=== PATIENT | female | born 1975 | race Two or more races ===

== ENCOUNTER → 2019-11-24 | Outpatient (CLI) | payer OTHER ==
--- NOTE | 2019-11-24 10:54 | KCIC ---
EXAM: MRI RIGHT HAND DATE: 11/24/2019 8:45 AM CLINICAL HISTORY: PAIN IN 3RD AND 4TH DIGITS FOR ONE YR/DECR STRENGTH COMPARISON: None. TECHNIQUE: Multiplanar, multisequence MR imaging of the right hand was performed without IV contrast. FINDINGS: No confluent T1 marrow replacing process. Apparent edema within the distal phalanx of the thumb may be artifactual from field in homogeneity artifact or be related to contusion. Otherwise no discrete marrow edema. No acute fracture. Visualized flexor and extensor tendons are grossly intact without tenosynovitis. No abnormal bowing. On this limited evaluation of the annular pulleys of the rays, grossly intact. Thumb MCP joint degenerative change with small osteophytes. Degenerative changes at scattered IP joints are also seen with small osteophytes. Degenerative changes at the middle finger MCP joint with cystic change/ganglion. Grossly normal muscle signal and bulk without fatty atrophy. IMPRESSION: 1. Visualized flexor and extensor tendons are intact without tenosynovitis. 2. Mild multifocal degenerative changes with small osteophytes, most prominent at the thumb MCP joint, scattered IP joints and middle finger MCP joint. 3. Contusion versus artifact distal phalanx thumb, can be correlated with patient's symptoms. Electronically signed by: Lenin Schultz MD (11/24/2019 10:51 AM) [facility]
== END ==
LOC: KCIC MRI 08:26
PROVIDERS: ATTEND Physician Assistant
DX: M25.741 Osteophyte, right hand (principal); M18.9 Osteoarthritis of first carpometacarpal joint, unspecified
CPT/HCPCS: 73218